=== PATIENT | male | born 1940 | race Caucasian/White ===

== ENCOUNTER 2017-12-11 10:58 | Outpatient (CLI) | payer MEDICARE, BC ==
--- NOTE | 2017-12-11 13:07 | MRI ---
MRI LEFT HIP WITHOUT CONTRAST: HISTORY: Pain. No injury or surgery. COMPARISON: None. FINDINGS: Bones: No fracture. No malalignment. No significant stress edema. There are acetabular subchondral osteophytes. There are fibroserous synovial pits of the left femora l head/neck conjunction. Labrum: Evaluation of the labrum is limited without intraarticular contrast, although there is extensive labr al tearing anteriorly and superiorly. This is not unexpected for age. 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 There are associate d subchondral cysts. Soft Tissues: The bilateral ligamentum teres are visualized with partial tear of the left ligament of Teres. Tendons: There is undersurface partial tearing of the semimembranosis tendon as well as extensive tendinosis o f both the common hamstring and semimembranous tendons. The iliopsoas tendon is intact. No signific ant iliopsoas bursitis. There is moderate tearing of the gluteus medias tendon. There is also partial undersurface deep tear ing of the gluteus minimus tendon. Muscles: No significant muscle atrophy. Soft Tissues: There is a small fat-containing left side indirect inguinal hernia. There is dilatation of the prost atic urethra. No adenopathy. There appear to be bilateral pars interarticularis defects at L4 with anterolisthesis. Advanced dege nerative disk space disease of L4-5 and L5-S1. IMPRESSION: 1. 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 This includes multifocal grade III ch ondromalacia with extensive cartilage fissuring and fraying delamination. There are subchondral cyst s of the acetabulum with osteophyte formation. 2. Extensive left-sided labral degeneration. 3. Dilatation of the prostatic urethra may be sequelae of prior transurethral resection of prostate. 4. Mild to moderate gluteus and medias tendinosis and partial tearing. POS: [facility]
== END 2017-12-11 10:59 | disposition home or self-care (01) ==
LOC: MRI 10:58
PROVIDERS: ATTEND Orthopaedic Surgery
DX: M25.552 Pain in left hip (principal); S76.012A Strain of muscle, fascia and tendon of left hip, initial encounter; M16.12 Unilateral primary osteoarthritis, left hip; M94.252 Chondromalacia, left hip; M25.852 Other specified joint disorders, left hip; N36.8 Other specified disorders of urethra

== ENCOUNTER 2018-10-22 09:40 | Outpatient (CLI) | payer MEDICARE, BC ==
--- NOTE | 2018-10-22 11:22 | RAD ---
LUMBAR SPINE FOUR VIEWS: INDICATIONS: Spondylolisthesis of the lumbosacral region. COMPARISON: CT lumbar spine from 05/30/2014. TECHNIQUE: AP and lateral views obtained. The lateral view is obtained with neutral, flexion, and extension pos itions. FINDINGS: Moderate degenerative changes are present. Prominent anterior bridging osteophytes are seen in the l ower thoracic and upper lumbar spine. The lumbar vertebrae maintain height. Degenerative disk edward es are prominent at L4-L5 and at L5-S1, where there is loss of disk space with degenerative endplate changes. There is a grade 1 anterolisthesis at L4-L5, similar in appearance to the prior exam of 201 4. Prominent facet hypertrophy. No significant change in alignment with flexion and extension. IMPRESSION: Moderate to severe hypertrophic degenerative changes of the lumbar spine. Loss of disk space at L4-L 5 and at L5-S1, with spondylolisthesis at L4-L5. POS: [facility]
--- NOTE | 2018-10-22 12:10 | MRI ---
MRI LUMBAR SPINE WITHOUT IV CONTRAST: HISTORY: M43.17, spondylolisthesis of the lumbar region. FINDINGS: The conus medullaris region is unremarkable, terminating at L1. There are generalized disk desiccati on changes and ligament and facet hypertrophic changes. There is a T2 hyperintense, T1 hypointense m ass involving the left kidney, incompletely seen, statistically enlarged cyst. T12-L1: Mild lateral recess stenosis. L1-L2: Mild left foraminal narrowing. L2-L3: Diffuse disk bulging and prominent ligament and facet hypertrophic changes with mild central canal and moderate lateral recess stenosis and foraminal stenosis. L3-L4: Generalized disk bulging with mild lateral recess stenosis and bilateral foraminal stenosis w ith an associated Schmorl's node involving the superior aspect of L4 and a small amount of adjacent e rose marie. L4-L5: Approximately 0.7 cm grade 1 anterolisthesis of L4 on L5, with marked narrowing. No signific ant central canal or lateral recess stenosis. Severe bilateral foraminal stenosis. L5-S1: Diffuse disk osteophytosis with a central annular fissure and protrusion with very mild depre ssion of the left S1 nerve root and midlateral lateral recess stenosis with moderate bilateral forami nal stenosis. IMPRESSION: Anterolisthesis of L4 on L5 with bilateral foraminal stenosis. Other findings as above. POS: [facility]
== END 2018-10-22 09:41 | disposition home or self-care (01) ==
LOC: BICMRI 09:40
PROVIDERS: ATTEND Nurse Practitioner Family
DX: M43.17 Spondylolisthesis, lumbosacral region (principal); M47.816 Spondylosis without myelopathy or radiculopathy, lumbar region; M48.061 Spinal stenosis, lumbar region without neurogenic claudication; M51.26 Other intervertebral disc displacement, lumbar region; M51.27 Other intervertebral disc displacement, lumbosacral region; M48.07 Spinal stenosis, lumbosacral region; Q05.7 Lumbar spina bifida without hydrocephalus
CPT/HCPCS: 72110; 72148

== ENCOUNTER 2020-07-31 08:41 | Outpatient (CLI) | payer MEDICARE, BC ==
--- NOTE | 2020-07-31 09:12 | RAD ---
AP PELVIS: HISTORY: Left hip pain. FINDINGS/IMPRESSION: There are degenerative changes in the lower lumbar spine, bilateral SI joints, and the left hip joint . No acute fracture, dislocation, or bone destruction is seen. There are soft tissue calcifications in the left gluteal region. POS: [facility]
--- NOTE | 2020-07-31 09:13 | RAD ---
LEFT HIP 2 VIEWS: HISTORY: Left hip pain. FINDINGS/IMPRESSION: There are mild degenerative changes in the left hip joint. No fracture, dislocation, or bone destruc tion is seen. Soft tissue calcifications present in the left gluteal region. POS: [facility]
== END 2020-07-31 08:42 | disposition home or self-care (01) ==
LOC: BICRAD 08:41
PROVIDERS: ATTEND Nurse Practitioner Family
DX: M25.552 Pain in left hip (principal); M16.12 Unilateral primary osteoarthritis, left hip; M79.89 Other specified soft tissue disorders
CPT/HCPCS: 72170